=== PATIENT | female | born 1995 | race African-American/Black ===

== ENCOUNTER 2017-06-05 11:53 | Emergency (ER) | payer SELFPAY ==
[~2017-06-05] VITALS: Ht 160 cm; Wt 59.0 kg
[2017-06-05 11:59] VITALS: BP 121/79
[2017-06-05] MEDS ORDERED: ALBUTEROL (0.083%) 2.5MG/3ML NEB HHN STA (12:49)
[2017-06-05] MEDS ORDERED: ALBUTEROL (0.083%) 2.5MG/3ML NEB ONE (13:15)
== END 2017-06-05 13:40 | disposition home or self-care (01) ==
LOC: ER 12:41
DX: J06.9 Acute upper respiratory infection, unspecified (principal); J98.01 Acute bronchospasm; R10.9 Unspecified abdominal pain; R11.2 Nausea with vomiting, unspecified
CPT/HCPCS: 81025; 99283; J7611

== ENCOUNTER 2021-09-28 10:08 | Emergency (ER) | payer MEDICAID ==
[~2021-09-28] VITALS: Ht 157.5 cm; Wt 59.0 kg
[2021-09-28] MEDS ORDERED: HYDROCODONE/ACETAMINOPHEN 5/325MG TABLET PO ONE (10:30)
[2021-09-28 10:39] LABS: BASOPHILS % 0.3 % (0.0-2.0); EOSINOPHILS % 0.9 % (0.0-5.0); HEMATOCRIT. 37.8 % (36.0-48.0); LYMPHOCYTES % 20.3 % (20.0-50.0); MEAN CORPUSCULAR HEMOGLOBIN 24.6 pg (28.0-32.0); MEAN CORPUSCULAR VOLUME 77.7 fL (81.0-99.0); MEAN PLATELET VOLUME 8.8 fl (7.4-10.4); MONOCYTES % 7.4 % (2.0-8.0); NEUTROPHILS % 71.1 % (40.0-76.0); PLATELET 246 x1000/uL (130-400); RED BLOOD CELL COUNT 4.86 mill/uL (4.2-5.4); RED CELL DISTRIBUTION WIDTH 15.8 % (11.6-14.6)
[2021-09-28 10:49] LABS: CHLORIDE 111 mEq/L (98-107)
[2021-09-28 10:53] LABS: HCG SCREEN NEGATIVE
[2021-09-28 15:02] VITALS: BP 107/84
== END 2021-09-28 15:20 | disposition home or self-care (01) ==
LOC: ER 10:22
DX: S00.83XA Contusion of other part of head, initial encounter (principal); S20.211A Contusion of right front wall of thorax, initial encounter; M54.2 Cervicalgia; Y08.89XA Assault by other specified means, initial encounter; Y93.89 Activity, other specified; Y92.89 Other specified places as the place of occurrence of the external cause; Y99.8 Other external cause status
CPT/HCPCS: 36415; 70486; 71045; 72131; 80053; 81025; 84703; 85025; 99285

== ENCOUNTER 2022-03-19 12:20 | Emergency (ER) | payer MEDICAID, OTHER ==
[~2022-03-19] VITALS: Ht 157.5 cm; Wt 62.0 kg
[2022-03-19 12:59] VITALS: BP 147/76
[2022-03-19] MEDS ORDERED: IBUP-2029 MT (21:06)
== END 2022-03-19 15:37 | disposition left against medical advice (07) ==
LOC: ER 12:20
DX: Z53.21 Procedure and treatment not carried out due to patient leaving prior to being seen by health care provider (principal)

== ENCOUNTER 2022-03-19 16:44 | Emergency (ER) | payer OTHER ==
[~2022-03-19] VITALS: Ht 160 cm; Wt 65.0 kg
[2022-03-19 21:00] VITALS: BP 130/70
[2022-03-19] MEDS ORDERED: IBUP-2029 MT (21:06)
[2022-03-19] MEDS ORDERED: IBUPROFEN 600MG TABLET PO ONE (21:15)
== END 2022-03-19 21:20 | disposition home or self-care (01) ==
LOC: ER 16:44
DX: S09.8XXA Other specified injuries of head, initial encounter (principal); K02.9 Dental caries, unspecified; R03.0 Elevated blood-pressure reading, without diagnosis of hypertension; Y04.2XXA Assault by strike against or bumped into by another person, initial encounter; Y93.89 Activity, other specified; Y92.89 Other specified places as the place of occurrence of the external cause
CPT/HCPCS: 81025; 99282

== ENCOUNTER 2022-03-22 03:09 | Emergency (ER) | payer OTHER ==
[~2022-03-22] VITALS: Ht 154.9 cm; Wt 54.7 kg
[~2022-03-22 03:09] MED LIST: IBUP-2029 MT
[2022-03-22] MEDS ORDERED: ACETAMINOPHEN 325MG TABLET PO ONE (04:15)
[2022-03-22] MEDS ORDERED: TETANUS, DIPHTHERIA, PERTUSSIS VAC/PF 0.5ML (>10YR OLD) IM ONE (04:15)
[2022-03-22] MEDS ORDERED: IBUP-2029 MT (04:54)
[2022-03-22 06:21] VITALS: BP 128/77
== END 2022-03-22 06:22 | disposition home or self-care (01) ==
LOC: ER 03:09
DX: S00.83XA Contusion of other part of head, initial encounter (principal); S40.012A Contusion of left shoulder, initial encounter; X58.XXXA Exposure to other specified factors, initial encounter; Y93.89 Activity, other specified; Y92.89 Other specified places as the place of occurrence of the external cause; Y99.8 Other external cause status
CPT/HCPCS: 12001; 70486; 73030; 90471; 90715; 99284

== ENCOUNTER 2022-04-01 17:11 | Emergency (ER) | payer OTHER ==
[~2022-04-01] VITALS: Ht 157.5 cm; Wt 59.0 kg
[2022-04-01 17:35] VITALS: BP 117/63
== END 2022-04-01 19:42 | disposition home or self-care (01) ==
LOC: ER 17:11
DX: Z48.02 Encounter for removal of sutures (principal)
CPT/HCPCS: 81025; 99282

== ENCOUNTER 2022-04-02 00:18 | Emergency (ER) | payer OTHER ==
[~2022-04-02] VITALS: Ht 157.5 cm; Wt 59.0 kg
[2022-04-02 00:34] VITALS: BP 135/89
[2022-04-02] MEDS ORDERED: LIDOCAINE HCL 1% 20ML VIAL (Pyxis) INJ INFIL ONE (01:00)
[2022-04-02] MEDS ORDERED: BACITRACIN ZINC OINT UDPKT TOP ONE (02:15)
== END 2022-04-02 02:12 ==
LOC: ER 00:24
DX: S01.312A Laceration without foreign body of left ear, initial encounter (principal); S00.511A Abrasion of lip, initial encounter; Y04.2XXA Assault by strike against or bumped into by another person, initial encounter; Y93.89 Activity, other specified; Y92.89 Other specified places as the place of occurrence of the external cause
CPT/HCPCS: 12011; 99283; Z7610